=== PATIENT | female | born 1975 | race Caucasian/White ===

== ENCOUNTER 2018-03-13 01:57 | Emergency (ER) | payer MEDICAID ==
[~2018-03-13] VITALS: Ht 170.2 cm; Wt 81.8 kg
[2018-03-13 02:00] VITALS: BP 146/84
[2018-03-13] MEDS ORDERED: ACETAMINOPHEN/CODEINE 300-30 MG TABLET PO ONE (03:30)
[2018-03-13] MEDS ORDERED: PROPARACAINE HCL 0.5% 15 ML OPHTHALMIC SOLUTION OU ONE (03:30)
[2018-03-13] MEDS ORDERED: ERYTHROMYCIN 0.5% 3.5 GM TUBE OPHTHALMIC OINTMENT OS ONE (04:00)
== END 2018-03-13 04:12 | disposition home or self-care (01) ==
LOC: EMS 01:58
DX: T15.02XA Foreign body in cornea, left eye, initial encounter (principal); H10.9 Unspecified conjunctivitis; F17.210 Nicotine dependence, cigarettes, uncomplicated; X58.XXXA Exposure to other specified factors, initial encounter; Y93.89 Activity, other specified; Y92.89 Other specified places as the place of occurrence of the external cause; Y99.8 Other external cause status
CPT/HCPCS: 65220

== ENCOUNTER 2018-03-31 05:59 | Emergency (ER) | payer MEDICAID ==
[~2018-03-31] VITALS: Ht 170.2 cm; Wt 81.8 kg
[2018-03-31 06:00] VITALS: BP 132/84
[2018-03-31] MEDS ORDERED: ACETAMINOPHEN 325 MG TABLET PO ONE (08:00)
[2018-03-31] MEDS ORDERED: AMOX TR/POT CLAV 875 MG/125 MG TABLET PO ONE (08:00)
== END 2018-03-31 08:37 | disposition home or self-care (01) ==
LOC: EMS 05:59
DX: T63.301A Toxic effect of unspecified spider venom, accidental (unintentional), initial encounter (principal); F17.210 Nicotine dependence, cigarettes, uncomplicated; Y92.89 Other specified places as the place of occurrence of the external cause

== ENCOUNTER 2019-02-26 19:44 | Emergency (ER) | payer SELFPAY ==
[~2019-02-26] VITALS: Ht 170.2 cm; Wt 90.0 kg
[2019-02-26 19:49] VITALS: BP 154/90
== END 2019-02-26 21:10 | disposition left against medical advice (07) ==
LOC: EMS 19:45
DX: H53.8 Other visual disturbances (principal); Z53.21 Procedure and treatment not carried out due to patient leaving prior to being seen by health care provider

== ENCOUNTER 2019-02-26 23:39 | Emergency (ER) | payer SELFPAY | END 2019-02-27 01:30 | disposition left against medical advice (07) | LOC: EMS 23:42 | DX: H57.89 Other specified disorders of eye and adnexa (principal); Z53.21 Procedure and treatment not carried out due to patient leaving prior to being seen by health care provider ==

== ENCOUNTER 2019-02-27 12:56 | Emergency (ER) | payer SELFPAY ==
[~2019-02-27] VITALS: Ht 170.2 cm; Wt 90.9 kg
[2019-02-27 13:06] VITALS: BP 154/86
[2019-02-27] MEDS ORDERED: PROPARACAINE HCL 0.5% 15 ML OPHTHALMIC SOLUTION OS ONE (13:30)
[2019-02-27] MEDS ORDERED: FLUORESCEIN SODIUM 1 MG STRIP OS ONE (13:30)
[2019-02-27] MEDS ORDERED: TOBRAMYCIN SULFATE 0.3% 5 ML OPHTHALMIC SOLUTION OS STA (14:21)
[2019-02-27] MEDS ORDERED: ACETAMINOPHEN 325 MG TABLET PO ONE (15:00)
== END 2019-02-27 15:51 | disposition home or self-care (01) ==
LOC: EMS 13:02
DX: S05.02XA Injury of conjunctiva and corneal abrasion without foreign body, left eye, initial encounter (principal); H16.002 Unspecified corneal ulcer, left eye; X58.XXXA Exposure to other specified factors, initial encounter; Y93.89 Activity, other specified; Y92.89 Other specified places as the place of occurrence of the external cause; Y99.8 Other external cause status

== ENCOUNTER 2019-03-21 22:36 | Emergency (ER) | payer SELFPAY | END 2019-03-21 22:45 | disposition left against medical advice (07) | LOC: EMS 22:37 | DX: R05 Cough (principal); Z53.21 Procedure and treatment not carried out due to patient leaving prior to being seen by health care provider ==

== ENCOUNTER 2019-06-03 16:49 | Emergency (ER) | payer MEDICAID ==
[~2019-06-03] VITALS: Ht 170.2 cm; Wt 90.9 kg
[2019-06-03] MEDS ORDERED: ACETAMINOPHEN 500 MG TABLET PO ONE (17:45)
[2019-06-03] MEDS ORDERED: CEPHALEXIN MONOHYDRATE 500 MG CAPSULE PO ONE (17:45)
[2019-06-03 17:48] VITALS: BP 138/93
== END 2019-06-03 18:05 | disposition home or self-care (01) ==
LOC: EMS 16:49
DX: L03.116 Cellulitis of left lower limb (principal)

== ENCOUNTER 2021-08-24 04:11 | Emergency (ER) | payer MEDICAID, OTHER ==
[~2021-08-24] VITALS: Ht 170.2 cm; Wt 89.5 kg
[2021-08-24] MEDS ORDERED: ACET-66 PO (06:29)
[2021-08-24] MEDS ORDERED: TOBR5DRO44 OS (06:29)
[2021-08-24 06:30] VITALS: BP 137/85
[2021-08-24] MEDS ORDERED: ACETAMINOPHEN 500 MG TABLET PO ONE (06:30)
[2021-08-24] MEDS ORDERED: ERYTHROMYCIN 0.5% 3.5 GM TUBE OPHTHALMIC OINTMENT OS ONE (06:30)
== END 2021-08-24 06:43 | disposition home or self-care (01) ==
LOC: EMS 04:30
DX: H17.9 Unspecified corneal scar and opacity (principal)
CPT/HCPCS: 99283

== ENCOUNTER 2021-12-11 05:44 | Emergency (ER) | payer OTHER ==
[~2021-12-11] VITALS: Ht 175.3 cm; Wt 81.8 kg
[~2021-12-11 05:44] MED LIST: ACET-66 PO; TOBR5DRO44 OS
[2021-12-11 05:47] VITALS: BP 164/88
[2021-12-11] MEDS ORDERED: TOBR5DRO44 OS (06:13)
[2021-12-11] MEDS ORDERED: ERYTHROMYCIN 0.5% 3.5 GM TUBE OPHTHALMIC OINTMENT OU ONE (06:15)
== END 2021-12-11 06:39 | disposition home or self-care (01) ==
LOC: EMS 05:46
DX: H17.9 Unspecified corneal scar and opacity (principal); H10.9 Unspecified conjunctivitis
CPT/HCPCS: 99283

== ENCOUNTER 2022-04-19 09:25 | Emergency (ER) | payer OTHER ==
[~2022-04-19] VITALS: Ht 170.2 cm; Wt 90.9 kg
[2022-04-19 09:31] VITALS: BP 140/80
[2022-04-19] MEDS ORDERED: FLUORESCEIN SODIUM 1 MG STRIP ONE (10:58)
[2022-04-19] MEDS ORDERED: PROPARACAINE HCL 0.5% 15 ML OPHTHALMIC SOLUTION OS ONE (11:00)
[2022-04-19] MEDS ORDERED: FLUORESCEIN SODIUM 1 MG STRIP OS ONE (11:00)
[2022-04-19] MEDS ORDERED: MOXI3DRO27 OS (13:00)
== END 2022-04-19 13:10 | disposition home or self-care (01) ==
LOC: EMS 09:28
DX: H16.002 Unspecified corneal ulcer, left eye (principal); Z90.49 Acquired absence of other specified parts of digestive tract
CPT/HCPCS: 99283